=== PATIENT | female | born 1930 | race Caucasian/White ===

== ENCOUNTER 2017-01-06 14:22 | Emergency (ER) | payer OTHER ==
[2017-01-06 14:29] VITALS: BP 156/70; PULSE 92; RESP 18; TEMP 97.7; O2SAT 93
--- NOTE | 2017-01-06 15:18 | EDPHY ---
H & P Stated Complaint: some visual kent are black and can't see r eye Time Seen by Provider: 01/06/17 15:01 HPI/ROS: Chief complaint: Difficulty seeing out of right eye History of present illness: This is an 86-year-old female who presents to the emergency department for evaluation of difficulty seeing out of her right eye. Patient reports the onset of symptoms yesterday. She states she cannot see the upper visual field of her right eye. She states it is all black. She states there is no associated pain. She denies specific precipitating factors. She denies other associated signs or symptoms including no headache, no neurologic symptoms such as paresthesias, weakness or paralysis or bowel or bladder dysfunction, no fevers or cold symptoms. She has a history of cataract surgery. She does not wear contacts or use glasses. - Personal History Current Tetanus/Diphtheria Vaccine: Unsure - Medical/Surgical History Hx Asthma: No Hx Chronic Respiratory Disease: Yes Hx Diabetes: No Hx Cardiac Disease: No Hx Renal Disease: No Hx Cirrhosis: No Hx Alcoholism: No Hx HIV/AIDS: No Hx Splenectomy or Spleen Trauma: No Other PMH: asthma - Social History Smoking Status: Never smoked - Physical Exam Exam: General Appearance: Alert and nontoxic. Eyes: Periorbital tissue is unremarkable. No discharge from the eyes. No injection of the conjunctiva. No subconjunctival hemorrhage. No hyphema. No hypopyon. PERRLA. EOM intact. Red reflex present bilaterally. Funduscopic exams are grossly benign. Visual field on the right appears to be significantly diminished in the superior aspect. Visual kent on the left are grossly intact. Respiratory: Chest is non tender, lungs are clear to auscultation. Cardiac: Regular rate and rhythm Musculoskeletal: Neck is supple and non tender. Extremities have full range of motion and are non tender. Skin: No rashes or lesions. Neurological: Alert and oriented x4. Cranial nerves 2-12 grossly intact. Strength and sensation intact and symmetrical. Patient ambulating well. Constitutional: Initial Vital Signs Temperature (C) 36.5 C 01/06/17 14:26 Heart Rate 92 01/06/17 14:26 Respiratory Rate 18 01/06/17 14:26 Blood Pressure 156/70 H 01/06/17 14:26 O2 Sat (%) 93 01/06/17 14:26 O2 Delivery Mode Room Air Allergies/Adverse Reactions: Penicillins Allergy (Verified 01/06/17 14:26) Home Medications: Medication Instructions Recorded Pt Unsure 01/06/17 Medical Decision Making ED Course/Re-evaluation: Patient discussed with my secondary supervising physician Dr. Kayden Galdamez. Patient presents to the emergency department for a right superior visual field defect. She is nontoxic. Vital signs are stable. She has a nonfocal neurologic exam. I believe this is likely an eye issue and not a CVA. I have consulted with Ophthalmology Dr. Natalio Buitrago. He would like patient to come directly to his office for evaluation. Patient is discharged with instructions to go directly to his office, she is given his address and directions. Patient voiced understanding and agreement with plan. Differential Diagnosis: Included but not limited to I pathology such as retinal detachment and glaucoma , optic nerve dysfunction, CVA unlikely Departure - Departure Disposition: Home, Routine, Self-Care Clinical Impression: Visual disturbance of one eye Condition: Good Instructions: Blurred Vision (ED) Additional Instructions: Please go directly to the [facility]'s office, if there are any problems getting there return to the emergency room Referrals: BONY DAVIS [Other] - As per Instructions Natalio Buitrago MD [Medical Doctor] - As per Instructions
== END 2017-01-06 15:35 | disposition home or self-care (01) ==
DX: H53.9 Unspecified visual disturbance (principal); J45.909 Unspecified asthma, uncomplicated